=== PATIENT | female | born 1990 | race Caucasian/White ===

== ENCOUNTER 2017-12-26 10:56 | Inpatient (IN) | payer BC ==
[2017-12-26] MEDS ORDERED: Sodium Chloride 0.9% 10 ML Syringe FLUSH PRN (11:23)
[2017-12-26] MEDS ORDERED: Carboprost Tromethamine 250 MCG/1 ML Amp IM PRN (11:23)
[2017-12-26] MEDS ORDERED: Nalbuphine 20 MG/1 ML Amp IM PRN (11:23)
[2017-12-26] MEDS ORDERED: Misoprostol 400 MCG (4 X 100 MCG TAB) RECTAL PRN (11:23)
[2017-12-26] MEDS ORDERED: Ondansetron 4 MG/2 ML SDV IV PRN (11:23)
[2017-12-26] MEDS ORDERED: Lactated Ringers 500 ML IV ONE (11:23)
[2017-12-26] MEDS ORDERED: Lidocaine 1% 30 ML SDV INJECT PRN (11:23)
[2017-12-26] MEDS ORDERED: Methylergonovine 0.2 MG/1 ML Amp IM PRN (11:23)
[2017-12-26] MEDS ORDERED: Misoprostol 25 MCG (1/4 of 100 MCG) Tab VAG PRN (11:28)
[2017-12-26] MEDS: Lactated Ringers 1,000 ML IV SCH (12:57)
[2017-12-26] MEDS: Oxytocin/Normal Saline 30 UNIT/500 ML BAG IV SCH (12:58)
[2017-12-26] MEDS: Acetaminophen 325 MG Tab PO PRN (19:35)
[2017-12-26] MEDS ORDERED: hydrOXYzine HCl 25 MG Tab PO ONE (22:53)
[2017-12-27] MEDS: Lactated Ringers 1,000 ML IV SCH ×2 (03:23→04:04)
[2017-12-27] MEDS ORDERED: fentaNYL 100 MCG/2 ML SDV IVPUSH PRN (03:59)
[2017-12-27] MEDS ORDERED: fentaNYL 100 MCG/2 ML SDV ONE (06:13)
[2017-12-27] MEDS ORDERED: EPINEPHrine 1 MG/ML SDV ONE (06:13)
--- NOTE | 2017-12-27 06:52 | PCM.PRNOTE ---
- Free Text/Narrative Note: Requested to provide analgesia to full term patient in severe pain. Upon entering the room, patient is lying on left side complaining of severe abdominal pain and discomfort. Procedure was discussed with patient including adverse outcomes and expectations. Pt consented to analgesia, SAB/IT. Pt placed into a sitting position. Landmarks for SAB/IT were identified and marked. Back was prepped with betadine x3. A sterile, transparent, fenestrated drape was applied. Excess betadine was removed. Using 3 mL of a 1% lidocaine solution, a skin wheel was placed at the L3/L4 interspace. A 24 ga (4 inch) Pencan spinal needle was inserted until positive for CSF. Negative for heme or paresthesias. Injected fentanyl 20 mcg, sufentanil 10 mcg, and 12 mg of a 0.75 % bupivacaine solution with an epi wash. Pt was placed left lateral position for approximately 20 minutes. There were zero complications or adverse outcomes. Will continue to monitor.
[2017-12-27] MEDS ORDERED: Simethicone 80 MG Tab.Chew PO PRN (09:51)
[2017-12-27] MEDS ORDERED: Acetaminophen 325 MG Tab PO PRN (09:51)
[2017-12-27] MEDS ORDERED: Benzocaine/Menthol 20%-0.5% Spray 56 GM Canister TOP PRN (09:51)
[2017-12-27] MEDS: Oxytocin/Normal Saline 30 UNIT/500 ML BAG IV SCH (10:33)
--- NOTE | 2017-12-27 11:11 | PN ---
DATE: 12/27/2017 SUBJECTIVE: A 27-year-old, currently at 38 and 6/7 weeks' gestation based on last menstrual period, here for induction of labor because of intrahepatic cholestasis of suspected as well as the baby measuring larger for dates and suspected to be close to 4000 g. Last night, around 2:00 in the morning, we were having some difficulties keeping the baby on the monitor, and her cervix was only about 3.5 cm dilated despite induction of Pitocin running. scalp electrode was placed without any difficulties, and then sometime after 5:00 this morning, she was 4 cm dilated and 80% effaced and received an intrathecal for pain management. She has been able to sleep during that time, however, is questioning how soon she would be able to get enough or one in case the pain comes back. OBJECTIVE: Vital Signs: Reviewed. She has had no issues with hypertension or fever. Abdomen: heart tones tracing at 125 beats per minute at baseline. Accelerations noted. No decelerations. The TOCO was tracing contractions about every 3 to 4 minutes, and they have spaced significantly from prior. Cervix is 6 cm dilated, 80% effaced. caput is starting to have some softness to it making the exam more difficult. ASSESSMENT: 1. A 38 and 6/7 weeks' gestation. 2. Active stage labor after induction with artificial rupture of membranes, although progress is not as rapid as we would have liked. 3. Suspected intrahepatic cholestasis of due to the patient's symptom history and prior history of intrahepatic cholestasis of . Currently, bile acids are pending from an outside lab. 4. Generalized anxiety disorder. 5. Borderline personality type. 6. Fibromyalgia. PLAN: Continue active labor management. Pitocin was at 20, and nurses can now go up to 30 as we have appropriate tracing capability. I elected not to place an IUPC because she has made significant cervical sales and service change leader the past 3 hours. We will continue to consider other interventions as necessary, and the patient has been informed. Her questions were answered. [facility] /[id number]
[2017-12-27] MEDS: Ibuprofen 800 MG Tab PO PRN ×2 (12:59→21:30)
[2017-12-27] MEDS: Acetaminophen 325 MG Tab PO PRN (17:42)
[2017-12-27] MEDS: Docusate Sodium 100 MG Cap PO PRN (21:30)
--- NOTE | 2017-12-28 03:41 | DEL ---
DATE: 12/27/2017 PREPROCEDURE DIAGNOSES: 1. A 38 and 6/7 weeks' intrauterine by last menstrual period. 2. 4, para 2-0-1-2. 3. Blood type O positive, rubella immune, and group B strep negative. 4. Itching in in light of a history of intrahepatic cholestasis of prior suspect recurrence. Increased risk of intrauterine demise as indication for induction. 5. Nausea and vomiting in . 6. Suspicion of macrosomia with size measuring more than 3 weeks greater than dates. 7. Generalized anxiety disorder. 8. Obesity. 9. Borderline personality. 10.Chronic migraines. 11.Fibromyalgia. POSTPROCEDURE DIAGNOSES: 1. A 38 and 6/7 weeks' intrauterine by last menstrual period. 2. 4, para 2-0-1-2. 3. Blood type O positive, rubella immune, and group B strep negative. 4. Itching in in light of a history of intrahepatic cholestasis of prior suspect recurrence. Increased risk of intrauterine demise as indication for induction. 5. Nausea and vomiting in . 6. Suspicion of macrosomia with size measuring more than 3 weeks greater than dates. 7. Generalized anxiety disorder. 8. Obesity. 9. Borderline personality. 10.Chronic migraines. 11.Fibromyalgia. 12.Delivery of viable female over intact perineum. No lacerations. BRIEF HISTORY: A 27-year-old female with the above-listed diagnoses, had been complaining of itching for the past several weeks of her and bile acids checked on a regular basis. Symptoms became more severe and labs checked again; however, she was already 38 weeks 5 days' gestation, and bile acid level was still not yet resulted with increased risk of demise regardless of bile acid level. Delivery via induction of labor was planned. Baby was also measuring a little bit bigger on the last ultrasound, and fundal height has been measuring 3 weeks greater than dates; therefore, the patient agreeable to induction as well to increase chances of vaginal delivery. Early in the , she was breech and spontaneously converted to vertex. Induction itself was performed with initiation of cervical ripening with Pitocin and then augmented with artificial rupture of membranes and eventually scalp electrode used for further monitoring. She had an intrathecal for pain management and progressed well. Once complete, delivery was uncomplicated. PROCEDURE IN DETAIL: The patient in dorsal lithotomy position, delivered a viable female in the JEANNE position over intact perineum. Posterior arm present with the face. Infant was dried stimulated and mouth bulb suctioned. Baby placed up on mother's abdomen, doing well. Nurses continued further evaluation and cares. Umbilical cord clamping delayed then was cut. Three vessels verified, and cord blood sample obtained. Placenta then delivered by gentle cord traction and concomitant uterine massage, inspected and intact. Labia, vagina, and inspected and intact. Fundus is firm, and bleeding was well controlled. COMPLICATIONS: None. ESTIMATED BLOOD LOSS: 300 mL. DISPOSITION: Mother and baby in the room to maintain skin to skin and start . [facility] /[id number] YADI
[2017-12-28] MEDS: Ibuprofen 800 MG Tab PO PRN ×2 (05:08→15:01)
[2017-12-28] MEDS: Docusate Sodium 100 MG Cap PO PRN (08:56)
[2017-12-28] MEDS ORDERED: Sertraline 50 MG Tab PO SCH (09:00)
[2017-12-28] MEDS ORDERED: Prenatal Multivitamin with Calcium/Folic Acid/Iron Tab PO SCH (09:00)
[2017-12-28] MEDS ORDERED: fentaNYL 100 MCG/2 ML SDV ITHECAL ONE (14:33)
[2017-12-28] MEDS ORDERED: EPINEPHrine 1 MG/ML SDV ONE (14:33)
--- NOTE | 2017-12-30 12:27 | DISCH ---
ADMISSION DIAGNOSIS: 1. 38w5d gestation by LMP 2. O+, Immune, GBS- 3. Itching was suspicion for intrahepatic cholestasis of as in prior . 4. Nausea and vomiting affecting 5. Generalized anxiety disorder 6. Obesity 7. Borderline personality disorder 8. Chronic migraines 9. Fibromyalgia 10. Suspicion for macrosomia DISCHARGE DIAGNOSIS: 1. 38w5d gestation by LMP 2. O+, Immune, GBS- 3. Itching due to intrahepatic cholestasis of . 4. Nausea and vomiting affecting 5. Generalized anxiety disorder 6. Obesity 7. Borderline personality disorder 8. Chronic migraines 9. Fibromyalgia 10. Post spontaneous vaginal delivery viable female. 11. Triggerpoints causing pelvic/hip related pain. 12. Breast-feeding mother. PROCEDURES: Artificial rupture of membranes, induction of labor, place and scalp electrode, intrathecal for anesthesia, spontaneous vaginal delivery without complications. BRIEF HISTORY: A 27-year-old, 4, para 2-0-1-2, the patient presented to the clinic at 38 weeks and 5 days' gestation with increased symptoms of intrahepatic cholestasis of which she also had during her previous . We were also expecting a large for gestational age . Also, we discussed the risks and benefits of induction at term and she was in agreement to proceed, sent over to the hospital and induction carried out with Pitocin for cervical ripening and bringing on labor itself please see history and physical for full details. She is blood type O positive. Rubella immune. Group B strep negative. care was excellent. She has had frequent nausea and vomiting. At one point, she was having increased suicidal thoughts and her Zoloft needed to be increased to 200 mg in order to help with that other medical conditions remained stable. HOSPITAL COURSE: Hospital course was good. She tolerated her induction very well and had an intrathecal for anesthesia. We actively managed labor with Pitocin, artificial rupture of membranes and use of a scalp electrode. Once 6 hours of active labor had passed, she was able to successfully deliver a viable female , weighing 8 pounds 11 ounces, 3937 g, scores of 7 and 9 via spontaneous vaginal delivery after only about 13 minutes of pushing and without any lacerations. Since delivery, she had had some difficulties with getting up and out of bed and walking around. After Physical Therapy evaluation and release of some trigger-points, she did much better and felt ready to go home. was going well. Bleeding was menses like or less. She did not have any fever or chills. No chest pain or shortness of breath. Maternal and child bonding seemed to be going well and she was anxious to get home and see her other children. DISCHARGE CONDITION: Good. Ambulating. Tolerating regular diet. Passing flatus. Had not yet had a bowel movement. Voiding without difficulties. No chest pain or shortness of breath. PHYSICAL EXAMINATION: Vital Signs: Temperature is 97.1, pulse 91, blood pressure 119/53, and respiratory rate of 16, with O2 saturations of 96% on room air. Heart: Regular without any murmur. Lungs: Clear to auscultation bilaterally. Abdomen: Soft and fundus was firm and below the umbilicus. Extremities: Trace edema. No erythema or tenderness noted. LABORATORY DATA: Hemoglobin down to 10.0 from a prior 11.2, and platelets fairly stable at 330 down slightly from 396. DISPOSITION: Home with family. MEDICATIONS: 1. Ibuprofen 600 mg q.6 hours p.r.n. 2. Tylenol 650 mg q.6 hours p.r.n. 3. Colace 100 mg p.o. b.i.d. p.r.n. constipation. 4. vitamin 1 daily. 5. Zoloft 200 mg daily. 6. Iron 325 mg twice daily. FOLLOWUP: She will be seen in the office in 6 weeks for a routine care visit sooner if any problems or concerns arise. Her questions were answered. DISCHARGE INSTRUCTIONS: Routine post vaginal delivery instructions provided including signs and symptoms of depression, infection, preeclampsia, and generally advised to call or come in if there were any questions. [facility] /[id number] YADI
== END 2017-12-28 16:30 | disposition home or self-care (01) | DRG 560 ==
LOC: DL.OBCHECK 10:56 → DL.OB 11:06 → OBSVTOIN 12-27 09:36
PROVIDERS: ADMIT Family Medicine; ATTEND Family Medicine
PROC: 10E0XZZ Delivery of Products of Conception, External Approach (ICD-10-PCS; principal; 2017-12-27)
PROC: 10907ZC Drainage of Amniotic Fluid, Therapeutic from Products of Conception, Via Natural or Artificial Opening (ICD-10-PCS; 2017-12-27)
PROC: 00HU33Z Insertion of Infusion Device into Spinal Canal, Percutaneous Approach (ICD-10-PCS; 2017-12-27)
PROC: 3E0R3BZ Introduction of Anesthetic Agent into Spinal Canal, Percutaneous Approach (ICD-10-PCS; 2017-12-27)
DX: O26.62 Liver and biliary tract disorders in childbirth (principal); K83.1 Obstruction of bile duct; Z3A.39 39 weeks gestation of pregnancy; Z37.0 Single live birth; O99.344 Other mental disorders complicating childbirth; F41.8 Other specified anxiety disorders; O75.89 Other specified complications of labor and delivery; M79.7 Fibromyalgia; O99.214 Obesity complicating childbirth; Z3A.00 Weeks of gestation of pregnancy not specified; Z88.8 Allergy status to other drugs, medicaments and biological substances; O36.63X0 Maternal care for excessive fetal growth, third trimester, not applicable or unspecified
CPT/HCPCS: 36415; 59409; 85027; 97161-GP; A9270-GY; J0171; J2300; J2405; J2590; J3010; J7120

== ENCOUNTER 2024-05-07 02:39 | Inpatient (IN) | payer BC ==
[2024-05-07] MEDS ORDERED: Phenylephrine HCl In 0.9% NaCl 1 MG/10 ML Syringe IVPUSH PRN ×2 (08:00→21:28)
[2024-05-07] MEDS ORDERED: ePHEDrine 50 MG/ML SDV IVPUSH PRN ×2 (08:00→21:28)
[2024-05-07] MEDS ORDERED: Ropivacaine 200 MG in Premix Bag 1 BAG EPIDUR SCH ×2 (08:00→21:30)
[2024-05-07] MEDS ORDERED: Sodium Chloride 0.9% 10 ML Syringe FLUSH PRN ×2 (08:00→08:37)
[2024-05-07] MEDS ORDERED: Carboprost Tromethamine 250 MCG/1 ML Amp IM PRN (08:37)
[2024-05-07] MEDS ORDERED: Lidocaine 1% 30 ML SDV INJECT ONE (08:37)
[2024-05-07] MEDS ORDERED: Methylergonovine 0.2 MG/1 ML Amp IM PRN (08:37)
[2024-05-07] MEDS ORDERED: Misoprostol 400 MCG (4 X 100 MCG TAB) RECTAL PRN (08:37)
[2024-05-07] MEDS ORDERED: Tranexamic Acid 1,000 MG in Sodium Chloride 0.9% 100 ML IV PRN (08:37)
[2024-05-07] MEDS ORDERED: Acetaminophen 325 MG Tab PO PRN (08:37)
[2024-05-07] MEDS ORDERED: Oxytocin/Normal Saline 30 UNIT/500 ML BAG IV SCH (08:45)
[2024-05-07 09:27] LABS: HEMATOCRIT 39.6 % (37.0-47.0); HEMOGLOBIN 13.2 g/dL (12.0-16.0); MEAN CORPUSCULAR HEMOGLOBIN 30.9 pg (27.0-34.0); MEAN CORPUSCULAR HGB CONC 33.3 g/dL (33.0-35.0); MEAN CORPUSCULAR VOLUME 92.7 fL (80-100); RED BLOOD CELL COUNT 4.27 10^6/uL (4.2-5.4); WHITE BLOOD CELL COUNT,WBC 11.1 10^3/uL (5.0-10.0)
[2024-05-07] MEDS: Misoprostol 50 MCG (1/2 of 100 MCG) Tab VAG PRN (09:56)
[2024-05-07] MEDS: Misoprostol 25 MCG (1/4 of 100 MCG) Tab VAG PRN (14:58)
[2024-05-07] MEDS: Lactated Ringers 1,000 ML IV ONE (19:30)
[2024-05-07] MEDS: Lactated Ringers 1,000 ML IV SCH (20:25)
[2024-05-07] MEDS ORDERED: Bupivacaine 0.25% 10 ML SDV ONE (21:05)
[2024-05-07] MEDS ORDERED: fentaNYL 100 MCG/2 ML SDV ONE (21:05)
[2024-05-07] MEDS: Ondansetron 4 MG/2 ML SDV IVPUSH PRN (22:10)
[2024-05-07] MEDS: Terbutaline 1 MG/ML SDV IV ONE (22:37)
[2024-05-07] MEDS: Mineral Oil 30 ML UD Cup ONE (22:37)
[2024-05-07] MEDS: Sodium Chloride 0.9% 10 ML Syringe FLUSH SCH (22:37)
[2024-05-07] MEDS: Oxytocin/Normal Saline 30 UNIT/500 ML BAG IV SCH (23:05)
[2024-05-08] MEDS ORDERED: Acetaminophen 325 MG Tab PO PRN (03:09)
[2024-05-08] MEDS ORDERED: Misoprostol 400 MCG (4 X 100 MCG TAB) RECTAL PRN (03:09)
[2024-05-08] MEDS ORDERED: Simethicone 80 MG Tab.Chew PO PRN (03:09)
[2024-05-08] MEDS ORDERED: Carboprost Tromethamine 250 MCG/1 ML Amp IM PRN (03:09)
[2024-05-08] MEDS ORDERED: Sodium Chloride 0.9% 10 ML Syringe FLUSH PRN (03:09)
[2024-05-08] MEDS ORDERED: Tranexamic Acid 1,000 MG in Sodium Chloride 0.9% 100 ML IV PRN (03:09)
[2024-05-08] MEDS ORDERED: Oxytocin 10 Units/1 ML SDV IM PRN (03:09)
[2024-05-08] MEDS: Witch Hazel Medicated Pads 100/Jar TOP PRN (04:29)
[2024-05-08] MEDS: Benzocaine/Menthol 20%-0.5% Spray 78 GM Cannister TOP PRN (04:29)
[2024-05-08] MEDS: Ibuprofen 800 MG Tab PO SCH (04:30)
[2024-05-08] MEDS: Prenatal Multivitamin with Calcium/Folic Acid/Iron Tab PO SCH (09:19)
[2024-05-08] MEDS: Docusate Sodium 100 MG Cap PO PRN (09:20)
[2024-05-08] MEDS: Sertraline 50 MG Tab PO SCH (09:26)
[2024-05-08] MEDS: buPROPion 150 MG Tab.ER PO SCH (09:26)
[2024-05-08] MEDS ORDERED: Bupivacaine 0.25% 10 ML SDV ONE (20:24)
[2024-05-08] MEDS ORDERED: fentaNYL 100 MCG/2 ML SDV ONE (20:24)
== END 2024-05-09 10:10 | disposition home or self-care (01) | DRG 560 ==
LOC: DL.OB 02:39 → OBSVTOIN 05-08 02:39
PROVIDERS: ADMIT Family Medicine; ATTEND Family Medicine
PROC: 10E0XZZ Delivery of Products of Conception, External Approach (ICD-10-PCS; principal; 2024-05-08)
PROC: 10907ZC Drainage of Amniotic Fluid, Therapeutic from Products of Conception, Via Natural or Artificial Opening (ICD-10-PCS; 2024-05-08)
PROC: 3E033VJ Introduction of Other Hormone into Peripheral Vein, Percutaneous Approach (ICD-10-PCS; 2024-05-08)
DX: O24.424 Gestational diabetes mellitus in childbirth, insulin controlled (principal); Z3A.37 37 weeks gestation of pregnancy; Z37.0 Single live birth; O99.214 Obesity complicating childbirth; O99.344 Other mental disorders complicating childbirth; F41.1 Generalized anxiety disorder; F60.3 Borderline personality disorder; F90.9 Attention-deficit hyperactivity disorder, unspecified type; O26.643 Intrahepatic cholestasis of pregnancy, third trimester
CPT/HCPCS: 36415; 51702; 59409; 76815; 85027; 86850; 86900; 86901; A9270-GY; J2405; J2590; J7120